=== PATIENT | male | born 1940 | race Caucasian/White ===

== ENCOUNTER 2021-03-30 11:36 | Inpatient (IN) | payer MEDICARE ==
[~2021-03-30] VITALS: Ht 182.9 cm; Wt 113.8 kg
[2021-03-30 12:50] LABS: BASOPHILS % (AUTO) 0.6 % (0.0-5.0); EOSINOPHILS % (AUTO) 1.6 % (0.0-8.0); HEMATOCRIT 38.8 % (42-54); MEAN CORPUSCULAR HEMOGLOBIN 31.8 pg (27.0-33.0); MEAN CORPUSCULAR HGB CONC 31.4 g/dL (32.0-36.0); MONOCYTES % (AUTO) 7.8 % (3.0-13.0); NEUTROPHILS % (AUTO) 76.5 % (40.0-77.0); PLATELET COUNT (AUTO) 153 K/uL (130-400); RED BLOOD CELL COUNT(AUTO) 3.84 MIL/uL (4.50-6.20); RED CELL DISTRIBUTION WIDTH 14.2 % (11.0-15.5); WHITE BLOOD COUNT (AUTO) 10.1 K/uL (4.8-10.8)
[2021-03-30 12:57] LABS: CARBON DIOXIDE 26 mmol/L (21-32); CHLORIDE 110 mmol/L (101-111); CREATININE 1.8 mg/dL (0.5-1.5); GLOMERULAR FILTR. RATE CALC 39 mL/min (>60); GLUCOSE,RANDOM 94 mg/dL (70-105); POTASSIUM 4.5 mmol/L (3.5-5.1); SODIUM SERUM 147 mmol/L (136-145); UREA NITROGEN, BLOOD 25 mg/dL (7-18)
[2021-03-30 13:02] LABS: ALANINE AMINOTRANSFERASE 70 U/L (12-78); ALBUMIN 3.6 g/dL (3.5-5.0); ASPARTATE AMINOTRANSFERASE 49 U/L (10-37); BILIRUBIN,TOTAL 0.5 mg/dL (0.2-1.0); INR 1.08 (0.85-1.15); PROTHROMBIN TIME 11.7 SEC (9.6-11.6); TOTAL PROTEIN, SERUM 7.1 g/dL (6.0-8.3)
[2021-03-30 13:03] LABS: CRP QUANTITATIVE < 2.00 mg/L (0.00-9.0); PARTIAL THROMBOPLASTIN TIME 28.5 SEC (26.3-35.5)
[2021-03-30 13:05] LABS: HEMOGLOBIN A1C 5.3 % (4.0-6.0)
[2021-03-30 13:30] LABS: B-TYPE NATRIURETIC PEPTIDE 684 pg/mL (0-100)
[2021-03-30] MEDS ORDERED: FUROSEMIDE 40MG VIAL IV SCH (14:00)
[2021-03-30] MEDS ORDERED: PANTOPRAZOLE 40 MG TAB DR PO SCH (14:00)
[2021-03-30] MEDS: METOPROLOL TARTRATE 50 MG TAB PO SCH ×2 (14:10→21:02)
[2021-03-30 14:26] LABS: ERYTHROCYTE SEDIMENTATION RATE 25 MM/HR (0-20)
[2021-03-30 14:38] LABS: APPEARANCE,URINE Clear (CLEAR); BILIRUBIN,URINE Negative (NEGATIVE); COLOR,URINE Yellow (YELLOW); GLUCOSE, URINE (UA) Negative (NEGATIVE); KETONES,URINE Negative (NEGATIVE); LEUKOCYTE ESTERASE ,URINE Negative (NEGATIVE); NITRATE,URINE Negative (NEGATIVE); OCCULT BLOOD,URINE Negative (NEGATIVE); PROTEIN,URINE Negative (NEGATIVE); UROBILINOGEN,URINE 0.2 mg/dL (0.2-1.0)
[2021-03-30] MEDS: IPRATROPIUM 0.5 MG/2.5 ML INH IH SCH ×2 (15:00→19:21)
[2021-03-30 15:35] LABS: INFLUENZA TYPE A NEGATIVE FOR TYPE A (NEG)
[2021-03-30 15:36] LABS: INFLUENZA TYPE B NEGATIVE FOR TYPE B (NEG)
[2021-03-30 18:18] VITALS: BP 120/64
[2021-03-30] MEDS ORDERED: LIDOCAINE HCL-MPF 1% 2ML VIAL IV PRN (19:00)
[2021-03-30] MEDS ORDERED: POTASSIUM CHLORIDE 10% ELIXIR 20 MEQ/15 ML UDCUP PO PRN (19:00)
[2021-03-30] MEDS ORDERED: POTASSIUM CHLORIDE 20MEQ/100ML 100 ML IV PRN (19:00)
[2021-03-30 19:50] VITALS: BP 109/58
[2021-03-30] MEDS: ATORVASTATIN 40 MG TABLET PO SCH (21:00)
[2021-03-30] MEDS: MIRTAZAPINE 15 MG TABLET PO SCH (21:00)
[2021-03-30] MEDS: FLUTICASONE PROPIONATE 50MCG/SPRAY 16 GM BOTTLE EN SCH (21:00)
[2021-03-30] MEDS: MONTELUKAST SODIUM 10 MG TAB PO SCH (21:00)
[2021-03-30] MEDS: FINASTERIDE 5 MG TABLET PO SCH (21:00)
[2021-03-30] MEDS: APIXABAN 2.5 MG TABLET PO SCH (21:00)
[2021-03-30 21:29] VITALS: BP 123/68
[2021-03-31] VITALS (7 sets, daily range): BP systolic 94–123; BP diastolic 56–69
[2021-03-31] MEDS ORDERED: MAGN250T10 PO (00:45)
[2021-03-31] MEDS ORDERED: POTA-202 PO (00:45)
[2021-03-31] MEDS ORDERED: FINA5TAB41 PO (00:45)
[2021-03-31] MEDS ORDERED: APIX2.5T PO (00:45)
[2021-03-31] MEDS ORDERED: CETI10TA57 PO (00:45)
[2021-03-31] MEDS ORDERED: CHOL500051 PO (00:45)
[2021-03-31] MEDS ORDERED: SERT150C PO (00:45)
[2021-03-31] MEDS ORDERED: TURM500C9 PO (00:45)
[2021-03-31] MEDS ORDERED: DILT240C94 PO (00:45)
[2021-03-31] MEDS ORDERED: FURO20TA4 PO (00:45)
[2021-03-31] MEDS ORDERED: MIRT-93 PO (00:45)
[2021-03-31] MEDS ORDERED: ASCO100031 PO (00:45)
[2021-03-31] MEDS ORDERED: METO25TA6 PO (00:45)
[2021-03-31] MEDS ORDERED: CALC-1085 PO (00:45)
[2021-03-31] MEDS ORDERED: CINN500C PO (00:45)
[2021-03-31] MEDS ORDERED: AEC81 PO (00:45)
[2021-03-31] MEDS ORDERED: ATOR40TA71 PO (00:45)
[2021-03-31] MEDS ORDERED: POTASSIUM CITRATE PO (00:45)
[2021-03-31] MEDS ORDERED: MONT-39 PO (00:45)
[2021-03-31] MEDS: IPRATROPIUM 0.5 MG/2.5 ML INH IH SCH ×5 (01:26→23:07)
[2021-03-31 04:08] LABS: HEMATOCRIT 35.6 % (42-54); MEAN CORPUSCULAR HEMOGLOBIN 31.7 pg (27.0-33.0); MEAN CORPUSCULAR HGB CONC 30.9 g/dL (32.0-36.0); MEAN CORPUSCULAR VOLUME 102.6 fL (79-99); RED BLOOD CELL COUNT(AUTO) 3.47 MIL/uL (4.50-6.20); RED CELL DISTRIBUTION WIDTH 14.1 % (11.0-15.5); WHITE BLOOD COUNT (AUTO) 9.4 K/uL (4.8-10.8)
[2021-03-31 04:12] LABS: CREATININE 1.7 mg/dL (0.5-1.5); POTASSIUM 3.6 mmol/L (3.5-5.1)
[2021-03-31] MEDS: FUROSEMIDE 40MG VIAL IV SCH ×2 (05:19→16:50)
[2021-03-31] MEDS: METOPROLOL TARTRATE 50 MG TAB PO SCH ×3 (05:20→21:00)
[2021-03-31] MEDS: KCL 20 MEQ ERTAB PO PRN (05:21)
[2021-03-31] MEDS ORDERED: DILTIAZEM 60MG TAB PO SCH (09:00)
[2021-03-31] MEDS: FLUTICASONE PROPIONATE 50MCG/SPRAY 16 GM BOTTLE EN SCH ×2 (09:00→21:00)
[2021-03-31] MEDS: DILTIAZEM 120MG SR CAP PO SCH (09:06)
[2021-03-31] MEDS: CETIRIZINE HCL 5 MG TABLET PO SCH (09:06)
[2021-03-31] MEDS: SERTRALINE HCL 50 MG TABLET PO SCH (09:07)
[2021-03-31] MEDS: APIXABAN 2.5 MG TABLET PO SCH ×2 (09:07→21:00)
[2021-03-31] MEDS: KCL 20 MEQ ERTAB PO SCH (09:08)
[2021-03-31] MEDS: PANTOPRAZOLE 40 MG TAB DR PO SCH (09:16)
[2021-03-31] MEDS: FINASTERIDE 5 MG TABLET PO SCH (20:59)
[2021-03-31] MEDS: MIRTAZAPINE 15 MG TABLET PO SCH (21:00)
[2021-03-31] MEDS: ATORVASTATIN 40 MG TABLET PO SCH (21:00)
[2021-03-31] MEDS: MONTELUKAST SODIUM 10 MG TAB PO SCH (21:00)
[2021-04-01 04:35] VITALS: BP 136/72
[2021-04-01] MEDS: METOPROLOL TARTRATE 50 MG TAB PO SCH ×3 (05:21→21:05)
[2021-04-01] MEDS: FUROSEMIDE 40MG VIAL IV SCH ×2 (05:22→16:14)
[2021-04-01] MEDS: KCL 20 MEQ ERTAB PO PRN (06:23)
[2021-04-01] MEDS: IPRATROPIUM 0.5 MG/2.5 ML INH IH SCH ×4 (07:03→23:51)
[2021-04-01 07:36] VITALS: BP 98/69
[2021-04-01] MEDS: FLUTICASONE PROPIONATE 50MCG/SPRAY 16 GM BOTTLE EN SCH ×2 (09:00→21:00)
[2021-04-01] MEDS: KCL 20 MEQ ERTAB PO SCH (09:11)
[2021-04-01] MEDS: SERTRALINE HCL 50 MG TABLET PO SCH (09:11)
[2021-04-01] MEDS: APIXABAN 2.5 MG TABLET PO SCH ×2 (09:12→21:05)
[2021-04-01] MEDS: DILTIAZEM 120MG SR CAP PO SCH (09:12)
[2021-04-01] MEDS: PANTOPRAZOLE 40 MG TAB DR PO SCH (09:12)
[2021-04-01] MEDS: CETIRIZINE HCL 5 MG TABLET PO SCH (09:12)
[2021-04-01 11:07] VITALS: BP 84/56
[2021-04-01 15:29] VITALS: BP 108/59
[2021-04-01 19:55] VITALS: BP 106/57
[2021-04-01] MEDS: MONTELUKAST SODIUM 10 MG TAB PO SCH (21:05)
[2021-04-01] MEDS: ATORVASTATIN 40 MG TABLET PO SCH (21:05)
[2021-04-01] MEDS: FINASTERIDE 5 MG TABLET PO SCH (21:05)
[2021-04-01] MEDS: MIRTAZAPINE 15 MG TABLET PO SCH (21:05)
[2021-04-02 00:45] VITALS: BP 99/51
[2021-04-02 04:50] LABS: POTASSIUM 3.9 mmol/L (3.5-5.1)
[2021-04-02 04:56] VITALS: BP 117/75
[2021-04-02] MEDS: METOPROLOL TARTRATE 50 MG TAB PO SCH ×3 (05:13→21:17)
[2021-04-02] MEDS: FUROSEMIDE 40MG VIAL IV SCH ×2 (05:13→17:57)
[2021-04-02] MEDS: IPRATROPIUM 0.5 MG/2.5 ML INH IH SCH ×4 (06:31→23:46)
[2021-04-02 07:00] VITALS: BP 98/59
[2021-04-02] MEDS: FLUTICASONE PROPIONATE 50MCG/SPRAY 16 GM BOTTLE EN SCH ×2 (09:00→21:22)
[2021-04-02] MEDS: DILTIAZEM 120MG SR CAP PO SCH (09:53)
[2021-04-02] MEDS: CETIRIZINE HCL 5 MG TABLET PO SCH (09:53)
[2021-04-02] MEDS: KCL 20 MEQ ERTAB PO SCH (09:54)
[2021-04-02] MEDS: APIXABAN 2.5 MG TABLET PO SCH ×2 (09:55→21:18)
[2021-04-02] MEDS: SERTRALINE HCL 50 MG TABLET PO SCH (09:55)
[2021-04-02] MEDS: PANTOPRAZOLE 40 MG TAB DR PO SCH (09:55)
[2021-04-02 11:00] VITALS: BP 95/52
[2021-04-02 15:00] VITALS: BP 108/61
[2021-04-02 20:01] VITALS: BP 105/59
[2021-04-02] MEDS ORDERED: 0.9%NACL 1000ML 1,000 ML IV SCH (21:00)
[2021-04-02] MEDS ORDERED: 0.9%NACL 1000ML 1,000 ML IV ONE (21:04)
[2021-04-02] MEDS: MIRTAZAPINE 15 MG TABLET PO SCH (21:17)
[2021-04-02] MEDS: MONTELUKAST SODIUM 10 MG TAB PO SCH (21:17)
[2021-04-02] MEDS: ATORVASTATIN 40 MG TABLET PO SCH (21:17)
[2021-04-02] MEDS: FINASTERIDE 5 MG TABLET PO SCH (21:18)
[2021-04-03] VITALS (7 sets, daily range): BP systolic 89–114; BP diastolic 58–71
[2021-04-03 04:06] LABS: BASOPHILS % (AUTO) 0.6 % (0.0-5.0); EOSINOPHILS % (AUTO) 3.6 % (0.0-8.0); HEMATOCRIT 41.1 % (42-54); LYMPHOCYTES % (AUTO) 16.1 % (21.0-51.0); MEAN CORPUSCULAR HEMOGLOBIN 32.5 pg (27.0-33.0); MEAN CORPUSCULAR HGB CONC 31.4 g/dL (32.0-36.0); MEAN CORPUSCULAR VOLUME 103.5 fL (79-99); MONOCYTES % (AUTO) 9.4 % (3.0-13.0); NEUTROPHILS % (AUTO) 70.1 % (40.0-77.0); PLATELET COUNT (AUTO) 221 K/uL (130-400); RED BLOOD CELL COUNT(AUTO) 3.97 MIL/uL (4.50-6.20); RED CELL DISTRIBUTION WIDTH 14.4 % (11.0-15.5); WHITE BLOOD COUNT (AUTO) 9.3 K/uL (4.8-10.8)
[2021-04-03 04:25] LABS: B-TYPE NATRIURETIC PEPTIDE 486 pg/mL (0-100)
[2021-04-03 04:39] LABS: % IRON SATURATION 21.7 % (30-44)
[2021-04-03 04:55] LABS: ALANINE AMINOTRANSFERASE 54 U/L (12-78); ALBUMIN 3.7 g/dL (3.5-5.0); ASPARTATE AMINOTRANSFERASE 40 U/L (10-37); BILIRUBIN,TOTAL 0.7 mg/dL (0.2-1.0); CARBON DIOXIDE 28 mmol/L (21-32); CHLORIDE 108 mmol/L (101-111); CREATININE 2.1 mg/dL (0.5-1.5); GLOMERULAR FILTR. RATE CALC 32 mL/min (>60); GLUCOSE,RANDOM 101 mg/dL (70-105); PHOSPHORUS 4.5 mg/dL (2.5-4.9); POTASSIUM 3.5 mmol/L (3.5-5.1); SODIUM SERUM 144 mmol/L (136-145); THYROID STIMULATING HORMONE 3.27 uIU/mL (0.36-3.74); TOTAL PROTEIN, SERUM 7.5 g/dL (6.0-8.3); UREA NITROGEN, BLOOD 24 mg/dL (7-18)
[2021-04-03] MEDS: IPRATROPIUM 0.5 MG/2.5 ML INH IH SCH ×3 (06:42→18:41)
[2021-04-03] MEDS ORDERED: METO50TA9 PO (08:39)
[2021-04-03] MEDS ORDERED: TORS20TA4 PO (08:39)
[2021-04-03] MEDS: PANTOPRAZOLE 40 MG TAB DR PO SCH (08:58)
[2021-04-03] MEDS: APIXABAN 2.5 MG TABLET PO SCH ×2 (08:59→20:49)
[2021-04-03] MEDS: KCL 20 MEQ ERTAB PO SCH (08:59)
[2021-04-03] MEDS: CETIRIZINE HCL 5 MG TABLET PO SCH (08:59)
[2021-04-03] MEDS: SERTRALINE HCL 50 MG TABLET PO SCH (08:59)
[2021-04-03] MEDS: METOPROLOL SUCCINATE 50 MG TAB.SR.24H PO SCH ×2 (09:00→20:49)
[2021-04-03] MEDS: DILTIAZEM 120MG SR CAP PO SCH (09:00)
[2021-04-03] MEDS: FLUTICASONE PROPIONATE 50MCG/SPRAY 16 GM BOTTLE EN SCH ×2 (09:00→20:49)
[2021-04-03] MEDS ORDERED: IRON SUCROSE COMPLEX 400 MG in 0.9% NACL 250ML 250 ML IV SCH (09:00)
[2021-04-03] MEDS ORDERED: COMPOUND IV MISC 1 EACH IVSOLN MISC PRN (09:00)
[2021-04-03] MEDS ORDERED: 0.9% NACL 500ML IV.SOLN 500 ML IV ONE (10:07)
[2021-04-03] MEDS ORDERED: 0.9% NACL 500ML IV.SOLN 500 ML IV SCH (10:30)
[2021-04-03] MEDS: ATORVASTATIN 40 MG TABLET PO SCH (20:49)
[2021-04-03] MEDS: MIRTAZAPINE 15 MG TABLET PO SCH (20:49)
[2021-04-03] MEDS: MONTELUKAST SODIUM 10 MG TAB PO SCH (20:49)
[2021-04-03] MEDS: FINASTERIDE 5 MG TABLET PO SCH (20:49)
[2021-04-04] MEDS: IPRATROPIUM 0.5 MG/2.5 ML INH IH SCH ×5 (01:03→23:17)
[2021-04-04 03:59] VITALS: BP 90/50
[2021-04-04 04:10] LABS: BASOPHILS % (AUTO) 0.4 % (0.0-5.0); EOSINOPHILS % (AUTO) 4.6 % (0.0-8.0); LYMPHOCYTES % (AUTO) 16.2 % (21.0-51.0); MEAN CORPUSCULAR HEMOGLOBIN 32.6 pg (27.0-33.0); MEAN CORPUSCULAR HGB CONC 31.5 g/dL (32.0-36.0); MEAN CORPUSCULAR VOLUME 103.7 fL (79-99); MONOCYTES % (AUTO) 9.7 % (3.0-13.0); PLATELET COUNT (AUTO) 161 K/uL (130-400); RED BLOOD CELL COUNT(AUTO) 3.28 MIL/uL (4.50-6.20); RED CELL DISTRIBUTION WIDTH 14.2 % (11.0-15.5)
[2021-04-04 04:29] LABS: BILIRUBIN,TOTAL 0.5 mg/dL (0.2-1.0); CREATININE 1.7 mg/dL (0.5-1.5); POTASSIUM 3.4 mmol/L (3.5-5.1)
[2021-04-04] MEDS: SERTRALINE HCL 50 MG TABLET PO SCH (07:45)
[2021-04-04] MEDS: PANTOPRAZOLE 40 MG TAB DR PO SCH (07:45)
[2021-04-04] MEDS: DILTIAZEM 120MG SR CAP PO SCH (07:45)
[2021-04-04] MEDS: KCL 20 MEQ ERTAB PO SCH (07:46)
[2021-04-04] MEDS: METOPROLOL SUCCINATE 50 MG TAB.SR.24H PO SCH ×2 (07:46→20:47)
[2021-04-04] MEDS: FLUTICASONE PROPIONATE 50MCG/SPRAY 16 GM BOTTLE EN SCH ×2 (07:47→20:48)
[2021-04-04] MEDS: CETIRIZINE HCL 5 MG TABLET PO SCH (07:47)
[2021-04-04] MEDS: APIXABAN 2.5 MG TABLET PO SCH ×2 (07:47→20:48)
[2021-04-04 08:00] VITALS: BP 118/78
[2021-04-04 11:40] VITALS: BP 105/60
[2021-04-04 16:04] VITALS: BP 99/54
[2021-04-04 19:22] VITALS: BP 102/62
[2021-04-04] MEDS: ATORVASTATIN 40 MG TABLET PO SCH (20:47)
[2021-04-04] MEDS: FINASTERIDE 5 MG TABLET PO SCH (20:48)
[2021-04-04] MEDS: MONTELUKAST SODIUM 10 MG TAB PO SCH (20:48)
[2021-04-04] MEDS: MIRTAZAPINE 15 MG TABLET PO SCH (20:48)
[2021-04-04 23:52] VITALS: BP 114/61
[2021-04-05 03:45] LABS: BASOPHILS % (AUTO) 0.4 % (0.0-5.0); EOSINOPHILS % (AUTO) 3.5 % (0.0-8.0); HEMATOCRIT 38.3 % (42-54); LYMPHOCYTES % (AUTO) 18.9 % (21.0-51.0); MEAN CORPUSCULAR HEMOGLOBIN 31.6 pg (27.0-33.0); MEAN CORPUSCULAR HGB CONC 31.1 g/dL (32.0-36.0); MEAN CORPUSCULAR VOLUME 101.6 fL (79-99); MONOCYTES % (AUTO) 8.8 % (3.0-13.0); NEUTROPHILS % (AUTO) 68.1 % (40.0-77.0); PLATELET COUNT (AUTO) 151 K/uL (130-400); RED BLOOD CELL COUNT(AUTO) 3.77 MIL/uL (4.50-6.20); RED CELL DISTRIBUTION WIDTH 14.3 % (11.0-15.5); WHITE BLOOD COUNT (AUTO) 6.8 K/uL (4.8-10.8)
[2021-04-05 04:03] VITALS: BP 115/68
[2021-04-05 04:03] LABS: ALBUMIN 3.2 g/dL (3.5-5.0); BILIRUBIN,TOTAL 0.5 mg/dL (0.2-1.0); POTASSIUM 3.4 mmol/L (3.5-5.1); TOTAL PROTEIN, SERUM 6.4 g/dL (6.0-8.3)
[2021-04-05] MEDS ORDERED: IRON SUCROSE COMPLEX IV ONE (06:00)
[2021-04-05] MEDS ORDERED: [UNRECOGNIZED DRUG - OTHER] IV ONE (06:00)
[2021-04-05] MEDS: IPRATROPIUM 0.5 MG/2.5 ML INH IH SCH ×4 (06:46→23:49)
[2021-04-05 08:08] VITALS: BP 115/64
[2021-04-05] MEDS: [UNRECOGNIZED DRUG - OTHER] IH SCH ×2 (09:00→21:00)
[2021-04-05] MEDS: SYMBICORT IH SCH ×2 (09:00→21:00)
[2021-04-05] MEDS ORDERED: PHARMACY COMMUNICATION MISC SCH ×2 (09:00)
[2021-04-05] MEDS: CETIRIZINE HCL 5 MG TABLET PO SCH (11:07)
[2021-04-05] MEDS: PANTOPRAZOLE 40 MG TAB DR PO SCH (11:08)
[2021-04-05] MEDS: KCL 20 MEQ ERTAB PO SCH (11:08)
[2021-04-05] MEDS: SERTRALINE HCL 50 MG TABLET PO SCH (11:08)
[2021-04-05] MEDS: APIXABAN 2.5 MG TABLET PO SCH ×2 (11:08→20:54)
[2021-04-05] MEDS: METOPROLOL SUCCINATE 50 MG TAB.SR.24H PO SCH ×2 (11:08→20:55)
[2021-04-05] MEDS: DILTIAZEM 120MG SR CAP PO SCH (11:09)
[2021-04-05] MEDS: TORSEMIDE 20 MG TAB PO SCH (11:09)
[2021-04-05] MEDS: FLUTICASONE PROPIONATE 50MCG/SPRAY 16 GM BOTTLE EN SCH ×2 (11:13→22:33)
[2021-04-05 11:51] VITALS: BP 101/66
[2021-04-05 15:58] VITALS: BP 105/63
[2021-04-05] MEDS ORDERED: PROPOFOL 10 MG/ML 20ML VIAL IV ONE (19:04)
[2021-04-05] MEDS ORDERED: LIDOCAINE PF 100MG/5ML (2%) SYRINGE 5ML ONE (19:04)
[2021-04-05 19:30] VITALS: BP 126/71
[2021-04-05] MEDS: ATORVASTATIN 40 MG TABLET PO SCH (20:54)
[2021-04-05] MEDS: MIRTAZAPINE 15 MG TABLET PO SCH (20:54)
[2021-04-05] MEDS: MONTELUKAST SODIUM 10 MG TAB PO SCH (20:55)
[2021-04-05] MEDS: FINASTERIDE 5 MG TABLET PO SCH (20:55)
[2021-04-05 23:17] VITALS: BP 116/62
[2021-04-06 03:30] VITALS: BP 107/65
[2021-04-06] MEDS: IPRATROPIUM 0.5 MG/2.5 ML INH IH SCH (06:35)
[2021-04-06 07:31] VITALS: BP 132/66
[2021-04-06] MEDS: [UNRECOGNIZED DRUG - OTHER] IH SCH (07:59)
[2021-04-06] MEDS: SYMBICORT IH SCH (07:59)
[2021-04-06] MEDS: FLUTICASONE PROPIONATE 50MCG/SPRAY 16 GM BOTTLE EN SCH (07:59)
[2021-04-06] MEDS: METOPROLOL SUCCINATE 50 MG TAB.SR.24H PO SCH (08:10)
[2021-04-06] MEDS: KCL 20 MEQ ERTAB PO SCH (08:16)
[2021-04-06] MEDS: DILTIAZEM 120MG SR CAP PO SCH (08:17)
[2021-04-06] MEDS: SERTRALINE HCL 50 MG TABLET PO SCH (08:17)
[2021-04-06] MEDS: APIXABAN 2.5 MG TABLET PO SCH (08:17)
[2021-04-06] MEDS: PANTOPRAZOLE 40 MG TAB DR PO SCH (08:17)
[2021-04-06] MEDS: CETIRIZINE HCL 5 MG TABLET PO SCH (08:17)
[2021-04-06] MEDS: TORSEMIDE 20 MG TAB PO SCH (08:19)
[2021-04-06] MEDS ORDERED: DRONEDARONE HYDROCHLORIDE 400 MG TABLET PO SCH (09:00)
== END 2021-04-06 10:59 | disposition home or self-care (01) | DRG 291 ==
LOC: EDH 11:36 → EDHIP 11:37 → 2DH 17:54
PROVIDERS: ADMIT Internal Medicine; ATTEND Internal Medicine
DX: I13.0 Hypertensive heart and chronic kidney disease with heart failure and stage 1 through stage 4 chronic kidney disease, or unspecified chronic kidney disease (principal); I50.33 Acute on chronic diastolic (congestive) heart failure; J81.0 Acute pulmonary edema; I48.92 Unspecified atrial flutter; I45.2 Bifascicular block; E87.1 Hypo-osmolality and hyponatremia; E87.0 Hyperosmolality and hypernatremia; I47.1 Supraventricular tachycardia; Z20.822 Contact with and (suspected) exposure to COVID-19; R54 Age-related physical debility; E66.9 Obesity, unspecified; E78.5 Hyperlipidemia, unspecified; I48.91 Unspecified atrial fibrillation; E87.8 Other disorders of electrolyte and fluid balance, not elsewhere classified; N18.32 Chronic kidney disease, stage 3b; Z68.35 Body mass index [BMI] 35.0-35.9, adult; E87.6 Hypokalemia; D50.9 Iron deficiency anemia, unspecified; D63.1 Anemia in chronic kidney disease; T50.2X5A Adverse effect of carbonic-anhydrase inhibitors, benzothiadiazides and other diuretics, initial encounter; Z79.01 Long term (current) use of anticoagulants; Z79.899 Other long term (current) drug therapy; Z87.01 Personal history of pneumonia (recurrent); Z85.51 Personal history of malignant neoplasm of bladder; Z87.440 Personal history of urinary (tract) infections; Y92.89 Other specified places as the place of occurrence of the external cause
CPT/HCPCS: 36415; 71045; 73562; 80048; 80053; 81003; 82607; 82728; 82746; 82948; 83036; 83540; 83550; 83735; 83880; 84100; 84132; 84145; 84443; 84484; 85025; 85027; 85045; 85610; 85651; 85730; 86140; 87635; 87804; 93005; 93306; 93970; 94640; 97039; G0378; J1756; J1940; J2001; J2704; J3480; J3490; J7030; J7040; J7050